=== PATIENT | female | born 2000 | race African-American/Black ===

== ENCOUNTER 2019-01-30 21:28 | Emergency (ER) | payer OTHER ==
[2019-01-30] MEDS ORDERED: ACET/COD 300 MG/30 MG STARTER PACK 6 TAB BTL PO STA (21:59)
[2019-01-30] MEDS ORDERED: KETOROLAC 30 MG/ML 1 ML VIAL IM STA (21:59)
[2019-01-30] MEDS ORDERED: PENICILLIN VK 500MG STARTER 4 TAB BTL PO STA (22:00)
--- NOTE | 2019-01-30 22:01 | ED ---
ENT HPI - General Chief complaint: ENT Stated complaint: ear pain, head pain Time Seen by Provider: 01/30/19 21:50 Source: patient Mode of arrival: ambulatory Limitations: no limitations - History of Present Illness Initial comments: 18-year-old female patient presents to the emergency department today for evaluation of left lower dental pain radiating into the left ear. Patient states she's been having this pain for the last couple of weeks. Patient states that today the pain worsened. She states she has had intermittent swelling to the left jaw. Denies any erythema. Denies any swelling to the gums. Denies fever, chills, nausea, or vomiting. Denies any loose or broken teeth. Patient denies any recent rash, shortness breath, chest pain, abdominal pain, diarrhea, constipation, back pain, numbness, tingling, dizziness, weakness, hematuria, dysuria, urinary urgency, urinary frequency, headache, visual changes, or any other complaints. - Related Data Previous Rx's Medication Instructions Recorded Acetaminophen-Codeine 300-30mg 1 tab PO Q6H PRN #12 tablet 01/30/19 [Tylenol #3] Naproxen [EC-Naprosyn] 500 mg PO BID PRN #30 tablet. 01/30/19 Penicillin V Potassium [Pen Vee K] 500 mg PO Q6H #40 tablet 01/30/19 Allergies Allergy/AdvReac Type Severity Reaction Status Date / Time No Known Allergies Allergy Verified 01/30/19 21:45 Review of Systems ROS Statement: Those systems with pertinent positive or pertinent negative responses have been documented in the HPI. ROS Other: All systems not noted in ROS Statement are negative. Past Medical History Past Medical History: No Reported History History of Any Multi-Drug Resistant Organisms: None Reported Past Surgical History: No Surgical Hx Reported Past Psychological History: No Psychological Hx Reported Smoking Status: Never smoker Past Alcohol Use History: None Reported Past Drug Use History: None Reported General Exam Limitations: no limitations General appearance: alert, in no apparent distress, other (This is a well- developed, well-nourished adult female patient in no acute distress. Vital signs upon presentation are temperature 98.3F, pulse 62, respirations 18, blood pressure 121/70, pulse ox 100% on room air.) Eye exam: Present: normal appearance, PERRL, EOMI. Absent: scleral icterus, conjunctival injection, periorbital swelling ENT exam: Present: normal exam, normal oropharynx, mucous membranes moist, TM's normal bilaterally, other (There is evidence of cavity to the left lower dentition. There is surrounding gingival erythema with no evidence of drainable abscess.) Neck exam: Present: normal inspection. Absent: tenderness, meningismus, lymphadenopathy Respiratory exam: Present: normal lung sounds bilaterally. Absent: respiratory distress, wheezes, rales, rhonchi, stridor Cardiovascular Exam: Present: regular rate, normal rhythm, normal heart sounds. Absent: systolic murmur, diastolic murmur, rubs, gallop, clicks GI/Abdominal exam: Present: soft, normal bowel sounds. Absent: distended, tenderness, guarding, rebound, rigid Neurological exam: Present: alert, oriented X3, CN II-XII intact Psychiatric exam: Present: normal affect, normal mood Skin exam: Present: warm, dry, intact, normal color. Absent: rash Course Vital Signs 01/30/19 01/30/19 21:43 22:42 Temperature 98.3 F 98.1 F Pulse Rate 62 67 Respiratory 18 16 Rate Blood Pressure 121/70 116/68 O2 Sat by Pulse 100 98 Oximetry Medical Decision Making - Medical Decision Making 18-year-old female patient presents to the emergency department today for evaluation of left lower dental pain with radiation to the left ear. She is afebrile with normal vital signs. There is no neck swelling. No lymphadenopathy. Tympanic membranes normal with no erythema or effusion. Patient will be given pain medication for symptom control. She'll be started on antibiotics and instructed to follow-up with dentistry for recheck as soon as possible. Return parameters were discussed in detail. She verbalizes understanding and agrees with this plan. Disposition Clinical Impression: Pain, dental Disposition: HOME SELF-CARE Condition: Good Instructions (If sedation given, give patient instructions): Toothache (ED) Additional Instructions: Apply cool compresses to the left side the face. Take medications as directed. Follow-up through primary care physician for recheck as soon as possible. Follow-up with dentistry as soon as possible. Return to the emergency department immediately for any new, worsening, or concerning symptoms. Prescriptions: Naproxen [EC-Naprosyn] 500 mg PO BID PRN #30 tablet.dr ANDERSON Reason: Pain Penicillin V Potassium [Pen Vee K] 500 mg PO Q6H #40 tablet Acetaminophen-Codeine 300-30mg [Tylenol #3] 1 tab PO Q6H PRN #12 tablet PRN Reason: Pain Is patient prescribed a controlled substance at d/c from ED?: Yes When asked, does pt state using other controlled substances?: No If prescribed controlled substance>3 days was MAPS reviewed?: Prescribed <3 Days If opioid is for acute pain is fill amount 7 days or less?: Yes If Rx opioid, was Start Talking consent form obtained?: Yes Referrals: None,Stated [Primary Care Provider] - 1-2 days Time of Disposition: 22:01
[2019-01-30 22:44] VITALS: BP 116/68; PULSE 67; RESP 16; TEMP 98.1
== END 2019-01-30 22:42 | disposition home or self-care (01) ==
LOC: EC 21:28
DX: K08.89 Other specified disorders of teeth and supporting structures (principal); R51 Headache
CPT/HCPCS: 99284; 96372; J1885

== ENCOUNTER 2019-05-05 22:25 | Emergency (ER) | payer OTHER ==
[2019-05-05 22:28] VITALS: RESP 18
[2019-05-05] MEDS ORDERED: SULFAMETHOX-TMP 800-160MG 1 EACH TAB PO STA (23:41)
--- NOTE | 2019-05-06 00:11 | ED ---
Extremity Problem HPI - General Chief complaint: Extremity Problem,Nontraumatic Stated complaint: R Hand Swelling Time Seen by Provider: 05/05/19 22:34 Source: patient Mode of arrival: ambulatory Limitations: no limitations - History of Present Illness Initial comments: This patient is a 18-year-old girl who presents with complaint of right finger pain and swelling. She notes this been going on for the past few days now. She states that she does play basket well but she does not recall a specific injury to that finger. Patient states she was concerned she may be developing infection but has not had fever or chills. There is sensation and range of motion. MD Complaint: extremity swelling -: days(s) Location: right (Second digit) History of Same: No -: No fever Radiation: none Quality: dull Consistency: constant Improves with: nothing Worsens with: nothing - Related Data Previous Rx's Medication Instructions Recorded Sulfamethox-Tmp 800-160Mg [Bactrim 1 each PO Q12HR #14 tab 05/06/19 Ds] Allergies Allergy/AdvReac Type Severity Reaction Status Date / Time No Known Allergies Allergy Verified 05/05/19 22:50 Review of Systems ROS Statement: Those systems with pertinent positive or pertinent negative responses have been documented in the HPI. ROS Other: All systems not noted in ROS Statement are negative. Constitutional: Denies: fever, chills, weakness Skin: Denies: rash, lesions, change in color Neurological: Denies: weakness, numbness Past Medical History Past Medical History: No Reported History History of Any Multi-Drug Resistant Organisms: None Reported Past Surgical History: No Surgical Hx Reported Past Psychological History: No Psychological Hx Reported Smoking Status: Never smoker Past Alcohol Use History: None Reported Past Drug Use History: None Reported General Exam Limitations: no limitations General appearance: alert, in no apparent distress Extremities exam: Present: other (Patient does have small amount of swelling to the pad of the middle phalanx of the second digit. There is no erythema or warmth. Range of motion intact. Normal capillary refill and sensation.) Neurological exam: Present: alert. Absent: motor sensory deficit Skin exam: Present: warm, dry, intact, normal color. Absent: rash Course Vital Signs 05/05/19 22:26 Temperature 97.8 F Pulse Rate 81 Respiratory 18 Rate Blood Pressure 120/70 O2 Sat by Pulse 100 Oximetry Medical Decision Making - Lab Data Lab Results 05/05/19 Range/Units 23:59 Urine HCG, Qual Not Detected (Not Detectd) Disposition Clinical Impression: Foreign body (FB) in soft tissue Disposition: HOME SELF-CARE Condition: Good Instructions (If sedation given, give patient instructions): Soft Tissue Foreign Body (ED) Prescriptions: Sulfamethox-Tmp 800-160Mg [Bactrim Ds] 1 each PO Q12HR #14 tab Is patient prescribed a controlled substance at d/c from ED?: No Referrals: Robert Velasquez DO [Medical Doctor] - 1-2 days
--- NOTE | 2019-05-06 00:33 | XR ---
EXAMINATION TYPE: XR hand complete RT DATE OF EXAM: 05/06/2019 COMPARISON: NONE HISTORY: Index finger injury TECHNIQUE: 3 views FINDINGS: There is 1 mm density projected in the soft tissues anterior to the proximal aspect of the middle phalanx of the index finger consistent with a foreign body. I see no fracture. Joint spaces ar e normal. IMPRESSION: Small foreign body. No fracture seen.
[2019-05-06 01:16] VITALS: BP 123/71; PULSE 77; TEMP 98
== END 2019-05-06 01:16 | disposition home or self-care (01) ==
LOC: EC 22:25
DX: M79.5 Residual foreign body in soft tissue (principal)
CPT/HCPCS: 81025; 99283